=== PATIENT | female | born 1945 | race Two or more races ===

== ENCOUNTER 2019-09-24 13:53 | Inpatient (IN) | payer BC ==
[~2019-09-24] VITALS: Ht 160 cm; Wt 69.9 kg
--- NOTE | 2019-09-24 14:18 | NUR ---
[id number], c/o left ankle pain tripped and fall going down the stairs,-komissed the last step, 02/07 ps, pt awake, alert, -sob, nad noted, vss, pending md [facility]
[2019-09-24] MEDS ORDERED: HYDROCODONE/APAP 5/325MG 1 EACH TABLET ONE (15:27)
[2019-09-24] MEDS ORDERED: HYDROCODONE/APAP 5/325MG 1 EACH TABLET PO ONE (15:30)
--- NOTE | 2019-09-24 15:44 | NUR ---
VICKI FOX FOR ADMISSION
[2019-09-24 16:06] LABS: BASOPHILS % (AUTO) 0.4 % (0.0-2.0); EOSINOPHILS % (AUTO) 0.6 % (0.0-6.0); HEMATOCRIT 41 % (33-45); HEMOGLOBIN 13.7 g/dL (11.5-14.8); LYMPHOCYTES # (AUTO) 1.5 /CMM (0.8-4.8); LYMPHOCYTES % (AUTO) 14.5 % (20.0-44.0); MEAN CORPUSCULAR HGB CONC 34 g/dl (31.0-36.0); MEAN CORPUSCULAR VOLUME 90 fL (82-100); MONOCYTES # (AUTO) 0.6 /CMM (0.1-1.30); MONOCYTES % (AUTO) 5.6 % (2.0-12.0); NEUTROPHILS # (AUTO) 8.4 /CMM (1.8-8.9); NEUTROPHILS % (AUTO) 78.9 % (43.0-81.0); PLATELET COUNT (AUTO) 201 /CMM (150-450); RED BLOOD CELL COUNT(AUTO) 4.52 MIL/uL (4.0-5.2); WHITE BLOOD COUNT (AUTO) 10.6 K/uL (4.3-11.0)
--- NOTE | 2019-09-24 16:11 | NUR ---
[address] [facility]
[2019-09-24] MEDS ORDERED: FLUT16SP (16:18)
[2019-09-24] MEDS ORDERED: UBID100C13 PO (16:18)
[2019-09-24] MEDS ORDERED: ROSU20TA2 PO (16:18)
[2019-09-24] MEDS ORDERED: IRBE75TA11 PO (16:18)
[2019-09-24] MEDS ORDERED: ALPR0.255 PO (16:18)
[2019-09-24] MEDS ORDERED: METF-440 PO (16:18)
[2019-09-24] MEDS ORDERED: TRAZ-182 PO (16:18)
[2019-09-24] MEDS ORDERED: MULT-24 PO (16:18)
[2019-09-24] MEDS ORDERED: APIX5TAB PO (16:18)
[2019-09-24] MEDS ORDERED: ESCI10TA PO (16:18)
[2019-09-24 16:32] LABS: CALCIUM, SERUM 8.7 mg/dL (8.5-10.1); CREATININE 0.6 mg/dL (0.6-1.3); POTASSIUM 4.1 mmol/L (3.5-5.1)
--- NOTE | 2019-09-24 16:56 | NUR ---
report given to maggie cee for francesco, pt transported to 2nd floor
--- NOTE | 2019-09-24 17:00 | NUR ---
RN MS NOTES RECEIVED PT FROM E.R. STAFF VIA MARTI, ACCOMPANIED BY DAUGHTER, ASSISTED TO BED, MADE COMFORTABLE, ROOM SET UP ORIENTATION PROVIDED TO PT. VERBALIZED UNDERSTANDING, SPLINT TO LEFT LOWER LEG IN PLACE, VITAL SIGNS TAKEN AND RECORDED, BELONGINGS ACCOUNTED FOR, AWAITING ADMITTING ORDER FROM DR. FOX.
[2019-09-24 17:16] VITALS: BP 157/75
[2019-09-24] MEDS: LOSARTAN POTASSIUM 25 MG TABLET PO SCH (17:57)
[2019-09-24] MEDS ORDERED: ALPRAZOLAM 0.25 MG TABLET PO PRN (18:00)
[2019-09-24] MEDS: ACETAMINOPHEN 325 MG TABLET PO PRN (18:51)
--- NOTE | 2019-09-24 18:57 | NUR ---
RN MS NOTES PT IN BED, AWAKE, ALERT AND ORIENTED, PAIN MEDS GIVEN FOR PAIN MANAGEMENT, ATE DINNER, KEPT WARM AND COMFORTABLE IN BED.
--- NOTE | 2019-09-24 19:15 | NUR ---
furniture mover: received report from shawn serrano. pt in bed, awake, a/o x4, met with pt's family at bed side. pt on ra respirations even and unlabored. iv access on right ac g 20 patent and flushing well, on hl. pt has left leg splint in placed, denies any numbness or tingling sensation on affected leg. pt able to move and wiggle toes, with good capillary refill noted. distal cms intact. lle offloaded on pillows. discussed plan of care tonight. per pt her pain is 5/10, described as thumping pain, and requested for tylenol only. pt on eliquis, will be seen by ortho/dr coats in am, but was told by that due to eliquis, surgery wont happen till wednesday 09/26. safety precautions for fall initiated, call light in reach, will continue monitoring pt.
[2019-09-24 20:00] VITALS: BP 154/79
[2019-09-24] MEDS ORDERED: HYDROCODONE/APAP 5/325MG 1 EACH TABLET PO PRN (23:00)
--- NOTE | 2019-09-24 23:54 | NUR ---
rn notes: received call from warehouse traffic supervisor haylie, was told that pt is add on for surgery tomorrow 09/25, needs to be npo p mn. informed rn sup that there is no order received from arpit amaro, and was told by pt during the conversation earlier, that pt was told of having surgery most likely by wednesday 09/26 because she's been on eliquis. per rn sup haylie, pt was add on and there is no time given for surgery. will inform pt.
[2019-09-25] MEDS: ACETAMINOPHEN 325 MG TABLET PO PRN ×2 (00:05→15:34)
--- NOTE | 2019-09-25 00:05 | NUR ---
PRN TYLENOL: REQUESTED BY PT FOR LEFT ANKLE PAIN 02/07 , OFFERED NORCO, BUT PT REFUSED. STATED SHE ONLY PREFERS TYLENOL. ONLY BEEN 5HRS SINCE LAST TYLENOL ADMINISTRATION, PER MD BARRIENOTS TO GIVE NOW FOR C/O PAIN. PRN TYLENOL 650 MG TAB PO ADMINISTERED TO PT AT THIS TIME.
--- NOTE | 2019-09-25 00:21 | NUR ---
RN NOTES/NPO: PLACED PT ON NPO IN PREPARATION FOR PROCEDURE IN AM. PT REQUESTING TO SPEAK WITH MD BEFORE SIGNING ANY CONSENT. BUT AGREE WITH NPO FOR NOW.
[2019-09-25 06:20] VITALS: BP 146/85
[2019-09-25 06:39] LABS: BASOPHILS % (AUTO) 0.4 % (0.0-2.0); EOSINOPHILS % (AUTO) 1.3 % (0.0-6.0); HEMATOCRIT 40 % (33-45); HEMOGLOBIN 13.3 g/dL (11.5-14.8); LYMPHOCYTES # (AUTO) 1.7 /CMM (0.8-4.8); LYMPHOCYTES % (AUTO) 21.4 % (20.0-44.0); MEAN CORPUSCULAR HGB CONC 33 g/dl (31.0-36.0); MEAN CORPUSCULAR VOLUME 90 fL (82-100); MONOCYTES # (AUTO) 0.6 /CMM (0.1-1.30); MONOCYTES % (AUTO) 8.1 % (2.0-12.0); NEUTROPHILS # (AUTO) 5.5 /CMM (1.8-8.9); NEUTROPHILS % (AUTO) 68.8 % (43.0-81.0); PLATELET COUNT (AUTO) 176 /CMM (150-450); RED BLOOD CELL COUNT(AUTO) 4.39 MIL/uL (4.0-5.2); WHITE BLOOD COUNT (AUTO) 7.9 K/uL (4.3-11.0)
--- NOTE | 2019-09-25 06:48 | NUR ---
EOSS: PT REMAINS NPO , FOR ORIF OF LEFT ANKLE WITH DR HAY. NO CONSENT OBTAINED, PT WANTS TO SPEAK WITH ORTHO MD PRIOR TO SIGNING ANY CONSENT/GOING TO PROCEDURE. THIS WAS RELAYED TO OR STAFF. IV ACCESS REMAINS PATENT AND FLUSHING WELL, ON HL, NO S/S OF IV INFILTRATION NOTED. VS REMAINS STABLE, LLE SPLINT REMAINS IN PLACED, LEFT LEG OFFLOADED ON PILLOWS. SAFETY PRECAUTIONS FOR FALL REMAINS ENGAGED, CALL LIGHT IN REACH, WILL ENDORSE TO DAY RN FOR CONTINUITY OF CARE.
[2019-09-25 07:25] LABS: CALCIUM, SERUM 8.8 mg/dL (8.5-10.1); CARBON DIOXIDE 27 mmol/L (21-32); CHLORIDE 105 mmol/L (98-107); CREATININE 0.5 mg/dL (0.6-1.3); GLUCOSE 164 mg/dL (74-106); MAGNESIUM 2.1 mg/dL (1.8-2.4); PHOSPHORUS 3.2 mg/dL (2.5-4.9); SODIUM SERUM 140 mmol/L (136-145); UREA NITROGEN, BLOOD 9 mg/dL (7-18)
--- NOTE | 2019-09-25 07:34 | NUR ---
RN OPENING NOTES Patient received on room air, no sob noted, remains a/o x4 and is currently NPO since midnight. Patient remains on R AC 20 hep lock. Patient has a scheduled surgery today and patient stated that she will sign documents after talking to MD. Bed at the lowest setting, call light within reach, side rails up x2.
[2019-09-25 08:00] VITALS: BP 146/94
[2019-09-25] MEDS: METFORMIN 500 MG TABLET PO SCH ×2 (08:37→17:07)
[2019-09-25] MEDS: MULTIVITAMINS,THERAGRAN 1 UDTAB TABLET PO SCH (08:37)
[2019-09-25] MEDS ORDERED: APIXABAN 5 MG TABLET PO SCH (09:00)
[2019-09-25] MEDS ORDERED: Medication Not On Formulary EA (Ubidecarenone (Coq-10) 200 MG) PO SCH (09:00)
[2019-09-25] MEDS ORDERED: MIDAZOLAM HCL 2 MG/2ML VIAL ONE (09:06)
[2019-09-25] MEDS ORDERED: ROCURONIUM BROMIDE 50 MG/5 ML ONE (09:07)
[2019-09-25] MEDS ORDERED: FAMOTIDINE/PF INJ 20 MG/2 ML VIAL IV ONE (09:07)
[2019-09-25] MEDS ORDERED: FENTANYL PF 250MCG/5ML AMPUL ONE (09:07)
[2019-09-25] MEDS ORDERED: BUPIVACAINE 0.5 % PF 150 MG/30 ML VIAL ONE (09:10)
[2019-09-25] MEDS ORDERED: HYDROMORPHONE INJ 2 MG/ML DISP.SYRIN ONE (11:23)
[2019-09-25] MEDS: IV LR 1000 ML 1,000 ML IV PRN (12:38)
[2019-09-25 16:00] VITALS: BP 110/66
[2019-09-25] MEDS: CEFAZOLIN 2 GM in IV D5W 100 ML IV SCH (16:54)
[2019-09-25] MEDS: ATORVASTATIN 40 MG TABLET PO SCH (17:07)
[2019-09-25] MEDS: LOSARTAN POTASSIUM 25 MG TABLET PO SCH (17:08)
--- NOTE | 2019-09-25 18:18 | NUR ---
RN CLOSING NOTES Patient remains on room air, no sob noted, patient is s/p L ankle ORIF. Patient states that her pain is under control with tylenol at this time. Patient able to move toes and move left leg. No bleeding noted, MD to change dressing per order. All medications given to patient. Bed at the lowest setting, call light within reach, side rails up x2. Will give report to NOC RN for AMY bedside.
--- NOTE | 2019-09-25 19:26 | NUR ---
MS/RN OPENING NOTES PATIENT IN BED, AWAKE, ALERT X4, ABLE TO VERBALIZE NEEDS, RESPIRATIONS EVEN AND UNLABORED, REPORTED PAIN OF 7/10 ON LEFT ANKLE. NORCO 5-325 MG PO GIVEN TO MONITOR RELIEF, PATIENT ABLE TO VERBALIZE NEEEDS, LEFT FOOT OFFLOAD . MOITOPIRNG FOR ANY CHANGES. CALL LIGHTS WITHIN REACH, BED LOCKED. WILL MONITOR.
[2019-09-25 20:00] VITALS: BP 122/65
[2019-09-25] MEDS: FLUTICASONE PROPIONATE 16 GM BOTTLE NS SCH (20:38)
[2019-09-26] MEDS: ACETAMINOPHEN 325 MG TABLET PO PRN ×4 (00:07→23:49)
[2019-09-26] MEDS: CEFAZOLIN 2 GM in IV D5W 100 ML IV SCH (00:35)
--- NOTE | 2019-09-26 06:17 | NUR ---
MS/RN CLOSING NOTES PATIENT ABLE TO SLEEP FEW HOURS, USING BED GUTIERREZ WITH ASSIST, ALERT, ORIENTED, RESPIRATIONS EVEN AND UNLABORED, SKIN WARM TO TOUCH. BED LOCKED, CALL LIGHTS WITHIN REACH. ON IV FLUIDS, IV SITE ON RIGHT HAND PATENT. PROVIDED PAIN MEDICATION. ASSISTED WITH ALL NEEDS. MONITORED FOR ANY CHANGES.WILL ENDORSE TO AM RN FOR AMY.
--- NOTE | 2019-09-26 07:15 | NUR ---
MS RN NOTES PATIENT IN BED ALERT ORIENTED X 3. NO ACUTE DISTRESS NOTED. BREATHING UNLABORED. NO SOB NOTED. IV ACCESS PATENT AND INTACT, NO REDNESS OR SWELLING NOTED. LEFT LOWER EXTREMITY SPLINT CLEAN, DRY AND INTACT. SAFETY MEASURES IN PLACE. CALL LIGHT WITHIN REACH. WILL CONTINUE TO MONITOR ACCORDINGLY.
[2019-09-26 08:31] VITALS: BP 130/75
[2019-09-26] MEDS: APIXABAN 5 MG TABLET PO SCH ×2 (09:01→17:39)
[2019-09-26] MEDS: MULTIVITAMINS,THERAGRAN 1 UDTAB TABLET PO SCH (09:01)
[2019-09-26] MEDS: METFORMIN 500 MG TABLET PO SCH ×2 (09:01→17:38)
[2019-09-26] MEDS: IV LR 1000 ML 1,000 ML IV PRN (16:35)
[2019-09-26 17:00] VITALS: BP 117/79
[2019-09-26] MEDS: LOSARTAN POTASSIUM 25 MG TABLET PO SCH (17:38)
[2019-09-26] MEDS: ATORVASTATIN 40 MG TABLET PO SCH (17:38)
[2019-09-26] MEDS: FLUTICASONE PROPIONATE 16 GM BOTTLE NS SCH (17:38)
--- NOTE | 2019-09-26 18:52 | NUR ---
MS RN NOTES PATIENT IN BED ALERT ORIENTED X 3. NO ACUTE DISTRESS NOTED. BREATHING UNLABORED. NO SOB NOTED. IV ACCESS PATENT AND INTACT, NO REDNESS OR SWELLING NOTED. LEFT LOWER EXTREMITY SPLINT CLEAN, DRY AND INTACT. NEEDS ATTENDED AND ANTICIPATED. KEPT CLEAN DRY AND COMFORTABLE. SAFETY MEASURES IN PLACE. CALL LIGHT WITHIN REACH. WILL ENDORSE TO NIGHT NURSE FOR CONTINUITY OF CARE.
--- NOTE | 2019-09-26 19:43 | NUR ---
MS RN OPENING NOTES PATIENT RECEIVED RESTING IN BED A/O X 4, ABLE TO MAKE NEEDS KNOWN. PATIENT IS STABLE ON RA BREATHING EVEN AND UNLABORED, NO COMPLAINTS OF SOB. NO COMPLAINTS OF DISCOMFORT OR PAIN AND NO SIGNS OF ACUTE DISTRESS. SPLINT NOTED ON LEFT LOWER LEG, ELEVATED. IV LOCATED ON R AC #20 RUNNING LR @ 75 ML/ HR. SAFETY PRECAUTIONS IN PLACE WITH BED IN LOWEST POSITION, BREAKS ON, AND CALL LIGHT WITHIN REACH. WILL CONTINUE TO MONITOR.
[2019-09-26 20:44] VITALS: BP 129/66
--- NOTE | 2019-09-27 06:08 | NUR ---
MS RN CLOSING NOTES PATIENT IS CURRENTLY RESTING IN BED A/O x3. STABLE ON RA WITH BREATHING EVEN AND UNLABORED. NO SIGNS OF ACUTE DISTRESS NOTED AND NO CURRENT COMPLAINTS OF PAIN OR DISCOMFORT. PATIENT'S LLE WAS ELEVATED THROUGHOUT THE NIGHT WITH SPLINT INTACT. IV LOCATED ON R AC. ALL NEEDS WERE ATTENDED TO THROUGHOUT THE NIGHT. PATIENT WAS KEPT CLEAN AND DRY. SAFETY PRECAUTIONS IN PLACE WITH BED IN LOWEST POSITION, BREAKS ON, SIDE RAILS UP X2, AND CALL LIGHT WITHIN REACH. WILL ENDORSE TO ONCOMING SHIFT ABOUT AMY.
[2019-09-27 08:00] VITALS: BP 139/88
--- NOTE | 2019-09-27 08:00 | NUR ---
MS RN OPENING NOTES Received Patient awake and resting in bed. A/O x 4. VS stable with no acute distress. Breathing even and unlabored on room air with no respiratory distress. Denies pain. 20g PIV on RAC clean, intact, patent and flushing well. LLE dressing clean, dry and intact. Safety precautions in place. Bed locked and set to lowest position with side rails x 2 up. All needs rendered at this time. Call light within reach. Will continue to monitor.
[2019-09-27] MEDS: MULTIVITAMINS,THERAGRAN 1 UDTAB TABLET PO SCH (09:40)
[2019-09-27] MEDS: METFORMIN 500 MG TABLET PO SCH (09:40)
[2019-09-27] MEDS: APIXABAN 5 MG TABLET PO SCH (09:43)
[2019-09-27] MEDS: ACETAMINOPHEN 325 MG TABLET PO PRN (09:45)
[2019-09-27] MEDS ORDERED: IBUP-1955 PO (10:45)
[2019-09-27 15:45] VITALS: BP 142/84
--- NOTE | 2019-09-27 17:49 | NUR ---
MS ASSISTANT DISTRICT ATTORNEY NOTES Patient discharged for home at this time. Patient in stable condition. VS stable with no acute distress. Breathing even and unlabored on room air with no respiratory distress. Denies pain. LLE dressing clean, dry, and intact. Skin intact. Medication reconciliation and discharge orders reviewed and explained to Patient. Patient verbalized understanding. All belongings with Patient. Patient will follow up with Ortho. Escorted Patient to the lobby for safety. Patient picked up by Demarcus (son) and .
== END 2019-09-27 18:48 | disposition home health service (06) | DRG 493 ==
LOC: ER 13:56 → MEDSG2 16:25
PROVIDERS: ADMIT Internal Medicine; ATTEND Internal Medicine
PROC: 0QSH04Z Reposition Left Tibia with Internal Fixation Device, Open Approach (ICD-10-PCS; principal; 2019-09-25)
PROC: 0QSK04Z Reposition Left Fibula with Internal Fixation Device, Open Approach (ICD-10-PCS; principal; 2019-09-25)
DX: S82.852A Displaced trimalleolar fracture of left lower leg, initial encounter for closed fracture (principal); D68.69 Other thrombophilia; E11.9 Type 2 diabetes mellitus without complications; I10 Essential (primary) hypertension; I48.0 Paroxysmal atrial fibrillation; W10.9XXA Fall (on) (from) unspecified stairs and steps, initial encounter; Z79.01 Long term (current) use of anticoagulants; Z86.73 Personal history of transient ischemic attack (TIA), and cerebral infarction without residual deficits; Z79.84 Long term (current) use of oral hypoglycemic drugs; Y92.009 Unspecified place in unspecified non-institutional (private) residence as the place of occurrence of the external cause
CPT/HCPCS: 36415; 71045-TC; 73600-TC; 73610-TC; 80048-TC; 82962-TC; 83735-TC; 84100-TC; 85025-TC; 85610-TC; 85730-TC; 86850-TC; 87081-TC; 97116-TC; 97530-TC; G0378; J0690; J1170; J2250; J2405; J2704; J2710; J2765; J3010; J3490; J7060; J7120